=== PATIENT | female | born 1965 | race Caucasian/White ===

== ENCOUNTER 2019-07-16 14:19 | Emergency (ER) | payer BC, OTHER ==
[2019-07-16] MEDS ORDERED: ONDANSETRON INJ 4 MG/2 ML VIAL IV ONE (14:54)
[2019-07-16] MEDS ORDERED: SODIUM CHLORIDE 0.9% (FLUSH) 10 ML SYG IV PRN (14:54)
[2019-07-16] MEDS ORDERED: SODIUM CHLORIDE 0.9% 1000ML 1,000 ML IVS ONE (14:54)
--- NOTE | 2019-07-16 16:09 | ED.PDOC ---
History of Present Illness - General Chief Complaint: GI Problem Stated Complaint: Diarrhea, dehydration Time Seen by Provider: 07/16/19 14:54 Information Source: patient - History of Present Illness Initial Comments: 54 y/o female c/o diarrhea for 2 days, 2 nights, at least 200 times. Having to wear a diaper. No fever, vomiting, or bdominal. Denies antibiotic use in the lst 6 weeks. No unusual foods, travel, or activities. She has been staying in quarantine with her partner for 3 weeks. Review of Systems - Review of Systems Constitutional: States: weakness EENTM: States: other - dry tongue Respiratory: States: no symptoms reported Cardiology: States: no symptoms reported Gastrointestinal/Abdominal: States: diarrhea Genitourinary: States: no symptoms reported Musculoskeletal: States: no symptoms reported Skin: States: no symptoms reported, dryness Neurological: States: no symptoms reported Endocrine: States: no symptoms reported Hematologic/Lymphatic: States: no symptoms reported Past Medical History (General) - Patient Medical History Hx Seizures: No Hx Stroke: No Hx Dementia: No Hx Asthma: Yes Hx of COPD: No Hx Cardiac Disorders: Yes - Patient claims she has a valve leak Hx Congestive Heart Failure: No Hx Pacemaker: No Hx Hypertension: Yes Hx Thyroid Disease: No Hx Diabetes: No Hx Gastroesophageal Reflux: No Hx Renal Disease: No Hx Cancer: Yes Hx of HIV: No Hx MRSA: No Surgical History: appendectomy, cholecystectomy, gastric bypass, Hysterectomy - Vaccination History Hx Influenza Vaccination: Yes - Social History Hx Tobacco Use: No Hx Alcohol Use: No Family Medical History - Family History Mother Family History: Unknown Living Status: Unknown Physical Exam - Physical Exam General Appearance: Alert, No apparent distress Eyes, Ears, Nose, Throat Exam: PERRL/EOMI, other - dry mucous membranes Neck: non-tender, full range of motion, supple, normal inspection Respiratory: chest non-tender, lungs clear, normal breath sounds, no respiratory distress Cardiovascular/Chest: normal peripheral pulses, regular rate, rhythm, no edema, no murmur Gastrointestinal/Abdominal: non tender, soft, no organomegaly Back Exam: normal inspection Extremity: normal range of motion, normal inspection, no pedal edema Neurologic: inside barrel polisher II-XII nml as tested, no motor/sensory deficits, alert, normal mood/affect, oriented x 3 Skin Exam: pallor Progress - Progress Progress: 07/16/19 16:33 updated patient Departure - Departure Clinical Impression: Acute diarrhea Disposition: Discharge to Home or Self Care Condition: Good Departure Forms: ED Discharge - Pt. Copy, Patient Portal Self Enrollment Instructions: DI for Diarrhea and Traveler's Diarrhea -- Adult Referrals: Javier Varela III, MD [Primary Care Provider] - 1-2 Weeks Prescriptions: Diphenoxylate/Atropine [Lomotil Tab] 2.5 mg PO ACHS #12 tab Home Medications: Ambulatory Orders Diphenoxylate/Atropine [Lomotil Tab] 2.5 mg PO ACHS #12 tab 07/16/19
--- NOTE | 2019-07-16 16:32 | CT ---
EXAM DESCRIPTION: CT ABDOMEN AND PELVIS WITH CONTRAST CLINICAL HISTORY: looking for colitis COMPARISON: None Available. TECHNIQUE: CT of the abdomen and pelvis are performed during IV bolus administration of 100 mL of Isovue 300. Oral contrast media is administered as well. FINDINGS: In the lower chest, the lung bases are clear. Heart size is normal. CT abdomen Surgical changes of gastric bypass. Gallbladder is surgically absent. Tiny left renal calculus is nonobstructing 3 mm. Lesion at the lower pole of the left kidney has a density of 18/05/1937 Hounsfield units and is indeterminate measuring 2.9 cm in size. Compared to previous study in 2017, a small lesion was seen in this area with a density of 15 Hounsfield units consistent with a cyst. Correlate with sono findings to differentiate cystic from solid lesion. The liver, spleen, pancreas, adrenal glands and kidneys are normal in appearance. No inflammation around the pancreas. No ureteral stones or hydronephrosis. No bowel dilatation to suggest obstruction. No free air or free fluid. Clinical history indicates colitis. No thickening of the wall of the colon to suggest acute inflammatory or ischemic process. No inflammation around a diverticulum to suggest diverticulitis. Fluid in the right colon is noted with fluid in the distal ileal loops. The amount of fluid in the distal colon and rectum does not appear increased CT pelvis Appendix is surgically absent. No inflammation around the cecum or terminal ileum or sigmoid colon. Bladder and distal ureters are negative for stones. Bladder wall thickness is prominent but the bladder is incompletely distended. Normal enhancement of pelvic vessels. No inguinal or lower pelvic adenopathy. Soft tissue density in the pelvis may be vaginal cuff plus cervical stump with nabothian cysts. This appears similar to previous study. Bone window images are negative for fracture or lytic lesion. Coronal and sagittal reformatted images confirm the findings. Multilevel annular bulges in the lumbar spine. IMPRESSION: No acute process in the abdomen or pelvis. Nonobstructing calculus 3 mm in the upper calyx of the left kidney. Indeterminate lower left renal lesion probably cyst. This exam was performed according to our departmental dose-optimization program, which includes automated exposure control, adjustment of the mA and/or kV according to patient size and/or use of iterative reconstruction technique. Total DLP equals 914.81 mGycm. Electronically signed by: Jhonatan Payan MD 07/16/2019 4:31 PM CDT
[2019-07-16 17:38] VITALS: BP 107/76; TEMP 97.4; O2SAT 100
== END 2019-07-16 17:02 | disposition home or self-care (01) ==
LOC: ER 14:19
DX: R19.7 Diarrhea, unspecified (principal); I10 Essential (primary) hypertension; E86.0 Dehydration

== ENCOUNTER → 2019-08-31 | Outpatient (CLI) | payer OTHER ==
--- NOTE | 2019-08-31 10:50 | MRI ---
EXAM DESCRIPTION: Knee,Right CLINICAL HISTORY: PAIN IN RIGHT KNEE COMPARISON: Right knee MRI 05/25/2013.. TECHNIQUE: MRI of the right knee is performed with multiplanar multi sequence imaging, without intravenous contrast. FINDINGS: Bone and joint: Mild degenerative subchondral bone marrow edema involving the medial knee compartment. No fracture. Moderate knee osteoarthrosis with small tricompartmental osteophyte formation. Moderate knee joint effusion. Cartilage: Grade four chondrosis involves the medial knee compartment with full-thickness cartilage loss involving the central weightbearing surfaces. Scattered grade chondrosis involves the lateral knee compartment. Grade three chondrosis involves the patellofemoral compartment. Medial meniscus: Degenerative free edge truncation. Small peripheral tear at the posterior root tibial attachment with small para meniscal cyst measuring 4 mm. There is degenerative intrasubstance signal within the anterior/posterior horn and body with likely chronic partially healed horizontal tear component surfacing inferiorly (series 4 one image seven). Lateral meniscus: Small tear of the anterior horn with degenerative fraying and tearing of the free edge. Anterior cruciate ligament: Intact Posterior cruciate ligament: Intact Medial collateral ligament: Intact Lateral collateral ligament: Intact Popliteus tendon: Intact Biceps femoris tendon: Intact Iliotibial band: Intact Medial and lateral retinaculum: Intact Extensor mechanism: Mild distal quadriceps insertional tendinosis. The patella tendon is intact. Soft tissues: Small septated Clayton's cyst measures 4.3 cm. Medial joint mild capsular edema and thickening consistent with capsulitis. IMPRESSION: 1. Medial meniscus body and free edge degeneration with tear along the posterior root attachment with small para meniscal cyst. 2. Lateral meniscus tears and free edge fraying. 3. Moderate knee osteoarthrosis with grade 4/full-thickness cartilage loss involving the medial knee compartment with intermediate to high-grade chondrosis involving the lateral and patellofemoral compartments. 4. Moderate-sized knee joint effusion. 5. Medial knee joint mild capsulitis. 6. Small Clayton's cyst. Electronically signed by: Kirk Smith DO 08/31/2019 10:49 AM CDT
--- NOTE | 2019-09-01 14:29 | US ---
EXAM DESCRIPTION: Renal: Ultrasound. CLINICAL HISTORY: 54 years Female FUNCTIONAL URINARY INCONTINENCE COMPARISON: CT scan of abdomen and pelvis July 15 TECHNIQUE: Transcutaneous scanning: Two-dimensional and Doppler modes. FINDINGS: Right kidney measures 11.3 x 5.9 x 5.5 cm; mid-renal cortical thickness normal with normal .echogenicity. No hydronephrosis No echogenic stones. Smooth contour of the kidney with no perinephric fluid. Normal vascularity. Proximal ureter not visualized.. Left kidney measures 9.6 x 6.1 x 5.9 cm; mid-renal cortical thickness normal with normal. echogenicity. No hydronephrosis. No echogenic stones. 4.4 x 3.0 x 2.9 cm cyst. Mostly well-defined levy and posterior acoustic enhancement. Possible small nodule on one wall. Otherwise smooth contour of the kidney with no perinephric fluid. Normal vascularity.. Proximal ureter not visualized.. Urinary bladder was visualized. Prevoid volume 198.2 mL. Ureteral jet in the bladder seen on the right side only by color Doppler post void volume 13.9 mL. Micturition volume 184.3 mL. Abdominal aorta: Normal caliber from the proximal segment to the distal bifurcation. IMPRESSION: 1. Bilateral kidneys normal size and echogenicity. 4 cm cyst on the inferior pole of the left kidney. Possible small nodule on one wall. Consider six-month follow-up CT scan and renal ultrasound December 2019. Normal caliber of the abdominal aorta. 2. Normal micturition volume and post void residual volume in the bladder.. Electronically signed by: Onel Reina MD 09/01/2019 2:28 PM CDT
== END ==
LOC: MRI 08:49
PROVIDERS: ATTEND Family Medicine
DX: S83.281A Other tear of lateral meniscus, current injury, right knee, initial encounter (principal); S83.241A Other tear of medial meniscus, current injury, right knee, initial encounter; M17.11 Unilateral primary osteoarthritis, right knee; M76.891 Other specified enthesopathies of right lower limb, excluding foot; M71.21 Synovial cyst of popliteal space [Baker], right knee; M25.461 Effusion, right knee; R39.81 Functional urinary incontinence; N28.1 Cyst of kidney, acquired; N28.9 Disorder of kidney and ureter, unspecified

== ENCOUNTER → 2019-09-10 | Outpatient (CLI) | payer OTHER ==
--- NOTE | 2019-09-11 09:23 | MRI ---
Study: MRI of the Right Shoulder. Indication: PAIN IN RIGHT SHOULDER Technique: Multiplanar, multi sequence MRI of the right shoulder was obtained without intravenous contrast. Comparison: None. Findings: Distal clavicular resection and subacromial decompression noted. Moderate volume subacromial subdeltoid bursal fluid. High-grade supraspinatus and infraspinatus tendinosis with irregular effectively full-thickness, fullwidth supraspinatus tendon tearing as well as high-grade articular tearing anterior two thirds infraspinatus tendon insertion. Torn articular fibers retracted to the level of the AC joint line. Subscapularis tendinosis with intermediate grade articular tearing superiorly. Teres minor tendon intact. Mild atrophy and grade 1 fatty infiltration rotor cuff musculature. Intracapsular long head biceps tendinosis. Circumferential labral truncation/degeneration. Mild glenohumeral joint osteoarthritis with small joint effusion. No acute fracture. Thickening and edema inferior glenohumeral ligament which can be seen with adhesive capsulitis. Impression: Full-thickness, fullwidth supraspinatus tendon tear with high-grade articular tearing anterior two thirds infraspinatus tendon insertion. Subscapularis tendinosis with intermediate grade articular tearing superiorly. Mild atrophy and grade 1 fatty infiltration rotator cuff musculature. Intracapsular long head biceps tendinosis. Circumferential labral truncation and degeneration. Mild glenohumeral joint osteoarthritis with small joint effusion. Adhesive capsulitis. Distal clavicular resection and subacromial decompression noted. Electronically signed by: Franco Silva MD 09/11/2019 9:21 AM CDT
== END ==
LOC: MRI 09:53
PROVIDERS: ATTEND Family Medicine
DX: M75.101 Unspecified rotator cuff tear or rupture of right shoulder, not specified as traumatic (principal); S43.431A Superior glenoid labrum lesion of right shoulder, initial encounter; M19.011 Primary osteoarthritis, right shoulder; M75.91 Shoulder lesion, unspecified, right shoulder; M75.01 Adhesive capsulitis of right shoulder; M75.21 Bicipital tendinitis, right shoulder; M62.511 Muscle wasting and atrophy, not elsewhere classified, right shoulder; M25.411 Effusion, right shoulder; Z98.890 Other specified postprocedural states